=== PATIENT | female | born 1940 | race Hispanic/Latino ===

== ENCOUNTER 2023-07-26 07:39 | Emergency (ER) | payer OTHER ==
[~2023-07-26] VITALS: Ht 167.6 cm; Wt 63.5 kg
[2023-07-26] MEDS: LORAZEPAM 0.5 MG TABLET PO ONE (07:58)
[2023-07-26] MEDS: MORPHINE 2 MG SYG IVP ONE (07:59)
[2023-07-26] MEDS: LISINOPRIL 10 MG TABLET PO ONE (07:59)
[2023-07-26 08:03] LABS: BASOPHILS # (AUTO) 0.02 K/uL (0.00-0.20); BASOPHILS % (AUTO) 0.3 % (0.0-5.0); EOSINOPHILS # (AUTO) 0.06 K/uL (0.00-0.70); HEMATOCRIT 35.6 % (36-48); IMMATURE GRANULOCYTE ABSOLUTE 0.01 K/uL (0-1); LYMPHOCYTES # (AUTO) 1.6 K/uL (1.0-4.8); LYMPHOCYTES % (AUTO) 27.8 % (21.0-51.0); MEAN CORPUSCULAR HEMOGLOBIN 30.5 pg (27.0-33.0); MEAN CORPUSCULAR HGB CONC 35.1 g/dL (32.0-36.0); MEAN CORPUSCULAR VOLUME 86.8 fL (79-99); MONOCYTES # (AUTO) 0.6 K/uL (0.1-1.0); MONOCYTES % (AUTO) 10.9 % (3.0-13.0); NEUTROPHILS # (AUTO) 3.5 K/uL (1.8-7.7); NEUTROPHILS % (AUTO) 59.8 % (40.0-77.0); PLATELET COUNT (AUTO) 190 K/uL (130-400); RED CELL DISTRIBUTION WIDTH 12.7 % (11.0-15.5); WHITE BLOOD COUNT (AUTO) 5.8 K/uL (4.8-10.8)
[2023-07-26 08:15] LABS: CREATININE 0.7 mg/dL (0.5-1.0); POTASSIUM 3.3 mmol/L (3.5-5.1)
[2023-07-26 08:20] LABS: ALBUMIN 3.4 g/dL (3.5-5.0); TOTAL PROTEIN, SERUM 7.2 g/dL (6.0-8.3)
[2023-07-26] MEDS: KETOROLAC 30MG VIAL (30MG/ML) IM ONE (11:01)
[2023-07-26] MEDS: SOLU-MEDROL 40MG VIAL IM ONE (11:01)
[2023-07-26 11:14] VITALS: BP 168/72; PULSE 60; RESP 17; O2SAT 98
== END 2023-07-26 11:43 | disposition home or self-care (01) ==
LOC: EDH 07:39
DX: M48.56XA Collapsed vertebra, not elsewhere classified, lumbar region, initial encounter for fracture (principal); M48.061 Spinal stenosis, lumbar region without neurogenic claudication; M51.36 Other intervertebral disc degeneration, lumbar region; M54.42 Lumbago with sciatica, left side; M54.41 Lumbago with sciatica, right side; I10 Essential (primary) hypertension; Z90.49 Acquired absence of other specified parts of digestive tract
CPT/HCPCS: 99285; 80053; 85025; 86140; 36415; 72131; 96372 ×2; 96374; J2270; J2920; J1885